=== PATIENT | male | born 1960 | race Caucasian/White ===

== ENCOUNTER 2018-07-13 13:25 | Emergency (ER) | payer BC, OTHER ==
[2018-07-13] MEDS ORDERED: Ketorolac Tromethamine 30 MG/ML VIAL ONE (14:58)
== END 2018-07-13 15:18 | disposition home or self-care (01) ==
LOC: ERS 13:25
DX: M25.511 Pain in right shoulder (principal); Z71.6 Tobacco abuse counseling; I10 Essential (primary) hypertension
CPT/HCPCS: 99406; J1885

== ENCOUNTER 2020-04-19 11:03 | Emergency (ER) | payer OTHER, SELFPAY | END 2020-04-19 12:36 | disposition home or self-care (01) | LOC: ERS 11:03 | DX: G47.00 Insomnia, unspecified (principal); I10 Essential (primary) hypertension | CPT/HCPCS: 99283 ==

== ENCOUNTER 2021-01-02 07:22 | Outpatient (CLI) | payer OTHER ==
[2021-01-02 22:50] LABS: SARS-CoV-2 PCR by NAA Not Detected (NotDetected)
== END 2021-01-02 07:23 | disposition home or self-care (01) ==
LOC: LABBT 07:22
PROVIDERS: ATTEND Family Medicine
DX: R13.14 Dysphagia, pharyngoesophageal phase (principal); Z20.822 Contact with and (suspected) exposure to COVID-19
CPT/HCPCS: 87635; U0003; U0005

== ENCOUNTER 2021-01-05 09:39 | Outpatient (CLI) | payer OTHER ==
--- NOTE | 2021-01-05 15:03 | RAD ---
EXAM: XR Barium Swallow Esophagus PROVIDED CLINICAL HISTORY: Pharyngoesophageal dysphagia. COMPARISON: None FINDINGS: A double contrast esophagram was performed. There is decrease in primary esophageal peristalsis with minimal tertiary contractions noted during the exam. There is a caliber change involving the distal esophagus with mildly dilated esophagus proximal to region of caliber change. At site of caliber flores ge there is slight irregularity of the esophagus in this region. A 12.5 mm barium tablet was administered during the exam which traverses the esophagus including the area of caliber change and G E junction without difficulty or holdup. No gastroesophageal reflux was demonstrated during the exam. Certified Medication Technician chest x-ray demonstrates normal cardiac silhouette and pulmonary vasculature. Calcified granulo ma is present right lung base, the lungs are otherwise clear. Calcified mediastinal lymph nodes are present. Degenerative changes are present in the spine. Fluoroscopy: Time-1.6 seconds Dose-5.019 mGy centimeter squared IMPRESSION: 1. Evidence of a caliber change involving the distal esophagus with more normal caliber distal esopha chalino, but the esophagus proximal to this region is mildly dilated. At level of caliber change, there is slight irregularity of the esophagus. Further evaluation with endoscopy is recommended if this has not been performed. 2. Decreased primary esophageal peristalsis and mild tertiary contractions.
== END 2021-01-05 09:40 | disposition home or self-care (01) ==
LOC: RAD 09:39
PROVIDERS: ATTEND Family Medicine
DX: R13.14 Dysphagia, pharyngoesophageal phase (principal); K22.8 Other specified diseases of esophagus
CPT/HCPCS: 74220

== ENCOUNTER 2022-06-22 08:58 | Outpatient (CLI) | payer OTHER ==
[2022-06-22 10:25] LABS: Bilirubin Neg (Negative); Blood, Urine Negative (Negative); Clarity Clear (Clear); Glucose, Urine (Dipstick) 50 mg/dL (Negative); Ketone, Urine Negative (Negative); Leukocyte Negative (Negative); Nitrite Negative (Negative); Protein, Urine (Dipstick) Negative (Neg-Trace); Urobilinogen Normal mg/dL (Less than 2)
[2022-06-22 10:36] LABS: Bacteria/HPF None Seen HPF (None Seen); RBC/HPF 0-3 HPF (0-3); Squamous Epithelial None Seen HPF (0-3); WBC/HPF None Seen HPF (0-3)
[2022-06-22 10:38] LABS: Hemoglobin 14.9 g/dL (13.5-17.5); Mean Corpuscular Hemoglobin 28.4 pg (27.0-33.0); Mean Corpuscular Volume 86.3 fl (81.2-95.1); Mean Platelet Volume 10.4 fl (7.4-10.4); Platelet Count 240 10x3/uL (150-450); RBC Distribution Width 12.4 % (11.5-14.5); Red Blood Cell (RBC) Count 5.24 10x6/uL (4.32-5.72); White Blood Cell (WBC) Count 5.7 10x3/uL (3.5-10.5)
[2022-06-22 10:40] LABS: INR-International Normal Ratio 0.9; PTT 25.7 sec (22.0-33.0); Prothrombin Time 10.1 sec (9.5-12.1)
[2022-06-22 10:41] LABS: Anion Gap 10 mmol/L (10-20); BUN (Urea Nitrogen) 10 mg/dL (8.4-25.7); Calc. Creatinine Clearance 0 mL/min (70-130); Calcium 9.6 mg/dL (7.8-10.44); Carbon Dioxide 28 mmol/L (23-31); Chloride 101 mmol/L (98-107); Estimated GFR 82; Glucose 99 mg/dL (80-115); Potassium 4.4 mmol/L (3.5-5.1); Sodium 135 mmol/L (136-145)
== END 2022-06-22 08:59 | disposition home or self-care (01) ==
LOC: LABBT 08:58
PROVIDERS: ATTEND Urology
DX: Z01.818 Encounter for other preprocedural examination (principal); Z20.822 Contact with and (suspected) exposure to COVID-19
CPT/HCPCS: 80048; 81001; 85027; 85610; 85730; 87086; 87811; 93005; 93010

== ENCOUNTER 2022-06-27 08:41 | Day surgery (SDC) | payer OTHER ==
[2022-06-26 09:34] VITALS: BMI 22.5
[2022-06-27] MEDS ORDERED: Neomycin-Polymyxin 1 ML AMP ONE (12:43)
[2022-06-27] MEDS ORDERED: Bupivacaine 0.25% 10 ML VIAL ONE (12:43)
[2022-06-27] MEDS ORDERED: Bacitracin Zinc Ointment 30 gm TUBE ONE (12:43)
[2022-06-27] MEDS ORDERED: Famotidine/PF 20 mg/2ml Vial ONE (12:49)
[2022-06-27] MEDS ORDERED: fentaNYL Citrate/PF 100 MCG/2 ML SYRINGE ONE (12:49)
[2022-06-27] MEDS ORDERED: Sodium Chloride 0.9% 100 ML ONE (12:59)
[2022-06-27] MEDS ORDERED: CEFAZOLIN 2 GM VIAL ONE (12:59)
[2022-06-27] MEDS ORDERED: ePHEDrine 50 MG/ML VIAL ONE (13:08)
[2022-06-27] MEDS ORDERED: Lidocaine 1% PF 5 ML VIAL ONE (13:08)
[2022-06-27] MEDS ORDERED: Ketorolac Tromethamine 30 MG/ML VIAL ONE (13:08)
[2022-06-27] MEDS ORDERED: Phenylephrine 10 MG/ML VIAL ONE (13:08)
[2022-06-27] MEDS ORDERED: Glycopyrrolate 0.2 MG/ML 5 ML SYRINGE ONE (13:08)
[2022-06-27] MEDS ORDERED: Ondansetron PF 4 MG/2 ML Vial ONE (13:08)
[2022-06-27] MEDS ORDERED: PROPOFOL 200 MG/20 ML VIAL ONE (13:08)
[2022-06-27] MEDS ORDERED: Metoclopramide HCl 10 MG/2 ML VIAL ONE (13:08)
[2022-06-27] MEDS ORDERED: Fentanyl 100 MCG/2 ML VIAL ONE (14:45)
== END 2022-06-27 16:44 | disposition home or self-care (01) ==
LOC: SDC 08:41
PROVIDERS: ATTEND Urology
PROC: 0VB60ZZ Excision of Right Tunica Vaginalis, Open Approach (ICD-10-PCS; principal; 2022-06-27)
PROC: 0VBJ0ZZ Excision of Right Epididymis, Open Approach (ICD-10-PCS; principal; 2022-06-27)
DX: N43.3 Hydrocele, unspecified (principal); N43.42 Spermatocele of epididymis, multiple; K21.9 Gastro-esophageal reflux disease without esophagitis; I10 Essential (primary) hypertension; Z79.899 Other long term (current) drug therapy
CPT/HCPCS: 88302; J0690; J1885; J2370; J2405; J2704; J2765; J3010; J3370; J3490; S0020; S0028